=== PATIENT | female | born 1970 | race Caucasian/White ===

== ENCOUNTER 2017-06-11 21:40 | Emergency (ER) | payer BC ==
[~2017-06-11] VITALS: Ht 157.5 cm; Wt 57.1 kg
[~2017-06-11 21:40] MED LIST: AMOXIL875 MG PO; ENDOCET 5-3251 EACH PO; Motrin PO; Roxicet,Percocet 5/3 PO
[2017-06-12 00:15] VITALS: BP 131/79
== END 2017-06-12 00:18 | disposition home or self-care (01) ==
LOC: EME 21:40
DX: S09.90XA Unspecified injury of head, initial encounter (principal); W01.198A Fall on same level from slipping, tripping and stumbling with subsequent striking against other object, initial encounter
CPT/HCPCS: 99281; 99284

== ENCOUNTER 2017-12-24 18:14 | Emergency (ER) | payer BC ==
[~2017-12-24] VITALS: Ht 157.5 cm; Wt 62.4 kg
[2017-12-24 18:38] LABS: HEMATOCRIT 42.1 % (36.0-46.0); HEMOGLOBIN 14.1 G/DL (11.9-15.5); MCH 29.9 PG (29.0-34.0); MCHC 33.5 G/DL (30.0-36.0); MCV 89.4 FL (83-99); PLATELET COUNT 288 K/uL (156-360); RBC DIS.WIDTH-CV 12.6 % (11.8-14.6); RBC DIS.WIDTH-SD 41.8 % (39-53); RED BLOOD COUNT 4.71 M/uL (3.80-5.20); WHITE BLOOD COUNT 12.6 K/uL (4.1-10.2)
[2017-12-24 18:59] LABS: CHLORIDE 106 mEq/L (99-109); SODIUM 138 mEq/L (136-147)
[2017-12-24 19:00] LABS: TROP-I INTERPRETATION NEGATIVE; TROPONIN-I 0.02 ng/mL (0.0-0.30)
[2017-12-24 19:01] LABS: GLUCOSE 102 mg/dL (70-99)
[2017-12-24 19:05] LABS: CREATININE 0.9 mg/dL (0.6-1.3); GFR ESTIMATE (CALCULATED) > 59 mL/min/
[2017-12-24 19:06] LABS: UREA NITROGEN (BUN) 15 mg/dL (9-23)
[2017-12-24 20:24] LABS: D-DIMER ELISA < 150.00 ng/mLDDU (<230)
[2017-12-24 20:44] LABS: QUANTITATIVE HCG < 4.0 MIU/ML
[2017-12-24 21:05] VITALS: BP 117/76
== END 2017-12-24 21:09 | disposition home or self-care (01) ==
LOC: EME 18:14
DX: R00.2 Palpitations (principal); R07.89 Other chest pain; E53.8 Deficiency of other specified B group vitamins
CPT/HCPCS: 71046; 80048; 84484; 84702; 85027; 85379; 93005; 99281; 99284

== ENCOUNTER 2017-12-27 13:09 | Emergency (ER) | payer BC ==
[~2017-12-27] VITALS: Ht 157.5 cm; Wt 61.8 kg
[2017-12-27 14:03] LABS: HEMATOCRIT 40.7 % (36.0-46.0); HEMOGLOBIN 13.8 G/DL (11.9-15.5); MCH 29.6 PG (29.0-34.0); MCHC 33.9 G/DL (30.0-36.0); MCV 87.2 FL (83-99); PLATELET COUNT 290 K/uL (156-360); RBC DIS.WIDTH-CV 12.7 % (11.8-14.6); RBC DIS.WIDTH-SD 40.2 % (39-53); RED BLOOD COUNT 4.67 M/uL (3.80-5.20); WHITE BLOOD COUNT 9.4 K/uL (4.1-10.2)
[2017-12-27 14:12] LABS: CHLORIDE 106 mEq/L (99-109); POTASSIUM 3.9 mEq/L (3.7-5.4); SODIUM 139 mEq/L (136-147)
[2017-12-27 14:13] LABS: GLUCOSE 93 mg/dL (70-99)
[2017-12-27 14:17] LABS: CREATININE 0.8 mg/dL (0.6-1.3); GFR ESTIMATE (CALCULATED) > 59 mL/min/
[2017-12-27 14:18] LABS: UREA NITROGEN (BUN) 13 mg/dL (9-23)
[2017-12-27 14:25] LABS: QUANTITATIVE HCG < 4.0 MIU/ML
[2017-12-27 19:36] VITALS: BP 123/74
== END 2017-12-27 19:45 | disposition home or self-care (01) ==
LOC: EME 13:09
PROVIDERS: Physician Assistant
DX: R00.2 Palpitations (principal); R42 Dizziness and giddiness; R00.0 Tachycardia, unspecified; K76.89 Other specified diseases of liver; Z79.3 Long term (current) use of hormonal contraceptives; Z86.011 Personal history of benign neoplasm of the brain
CPT/HCPCS: 71275; 80048; 82948; 84702; 85027; 87651 90; 93005; 99281; 99285